=== PATIENT | male | born 1995 | race Caucasian/White ===

== ENCOUNTER 2022-12-24 20:50 | Emergency (ER) | payer OTHER ==
[~2022-12-24] VITALS: Ht 175.3 cm; Wt 101.2 kg
[2022-12-24 21:06] VITALS: BP 113/85; PULSE 124; RESP 18; TEMP 98.9; O2SAT 98
[2022-12-24] MEDS ORDERED: NACL 0.9% 2,000 ML IV ONE (21:10)
[2022-12-24 21:53] LABS: BASOPHILS # (AUTO) 0.1 K/uL (0.00-0.22); BASOPHILS % (AUTO) 0.5 % (0.0-2.0); EOSINOPHILS # (AUTO) 0.1 K/uL (0-0.4); EOSINOPHILS % (AUTO) 0.9 % (0.0-4.0); HEMATOCRIT 46.5 % (36-52); HEMOGLOBIN 15.4 g/dL (12.0-18.0); LYMPHOCYTES # (AUTO) 1.9 K/uL (2.0-11.5); LYMPHOCYTES % (AUTO) 19.6 % (20.5-51.1); MEAN CORPUSCULAR HEMOGLOBIN 30 pg (27-31); MEAN CORPUSCULAR HGB CONC 33 g/dL (33-37); MEAN CORPUSCULAR VOLUME 88.7 fL (80-94); MONOCYTES # (AUTO) 0.8 K/uL (0.8-1.0); MONOCYTES % (AUTO) 8.7 % (1.7-9.3); NEUTROPHILS # (AUTO) 6.6 K/uL (1.8-7.7); NEUTROPHILS % (AUTO) 70.3 % (42.2-75.2); PLATELET COUNT (AUTO) 305 K/uL (140-450); RED BLOOD CELL COUNT(AUTO) 5.24 MIL/uL (4.20-6.10); RED CELL DISTRIBUTION WIDTH 14.5 % (11.6-13.7); WHITE BLOOD COUNT (AUTO) 9.4 K/uL (4.8-10.8)
[2022-12-24 22:03] LABS: ANION GAP 19.6 (8-16); CALCIUM 9.2 mg/dL (8.5-10.1); CARBON DIOXIDE 21.3 mmol/L (21-32); CREATININE 1.2 mg/dL (0.6-1.3); POTASSIUM 3.9 mmol/L (3.5-5.1)
[2022-12-25 01:42] VITALS: BP 118/70; PULSE 97; RESP 18; TEMP 98.9; O2SAT 98
== END 2022-12-25 01:42 | disposition home or self-care (01) ==
LOC: MED 20:50
DX: R07.89 Other chest pain (principal); R20.0 Anesthesia of skin; R00.2 Palpitations; J45.909 Unspecified asthma, uncomplicated
CPT/HCPCS: 36415; 71045; 80048; 84484; 85025; 85379; 93005; 96360; 99291; J7030